=== PATIENT | female | born 1970 | race Hispanic/Latino ===

== ENCOUNTER 2019-02-07 22:01 | Emergency (ER) | payer OTHER ==
[2019-02-07] MEDS ORDERED: KETOROLAC TROMETHAMINE 60 MG/2 ML VIAL ONE (22:57)
[2019-02-07] MEDS ORDERED: DIAZEPAM 5 MG TABLET ONE (22:57)
[2019-02-07] MEDS ORDERED: DEXAMETHASONE SOD PHOSPHATE 10MG/ML 1ML VIAL ONE (22:57)
== END 2019-02-07 23:26 | disposition home or self-care (01) ==
LOC: EDH 22:01
DX: S39.012A Strain of muscle, fascia and tendon of lower back, initial encounter (principal); S29.012A Strain of muscle and tendon of back wall of thorax, initial encounter; M25.562 Pain in left knee; Z90.710 Acquired absence of both cervix and uterus; Z72.0 Tobacco use; Z88.1 Allergy status to other antibiotic agents; Z91.041 Radiographic dye allergy status; V49.40XA Driver injured in collision with unspecified motor vehicles in traffic accident, initial encounter; Y93.89 Activity, other specified; Y92.89 Other specified places as the place of occurrence of the external cause; Y99.8 Other external cause status
CPT/HCPCS: 96372 ×2; 99284; J1100; J1885